=== PATIENT | male | born 1945 | race Caucasian/White ===

== ENCOUNTER 2018-06-17 15:11 | Inpatient (IN) ==
--- NOTE | 2018-06-17 17:26 | ED ---
HPI General Chief Complaint: Psychiatric Symptoms Stated Complaint: psych eval/sherriff Time Seen by Provider: 06/17/18 16:31 Source: patient Mode of arrival: ambulatory Limitations: no limitations History of Present Illness HPI Narrative: Patient is a 72-year-old male brought in by [place] police under [place] act. Is apparently drinking alcohol all day today and made some threatening comments towards his he does have access to guns. His primary physician Fanta acted him and sent him here for evaluation. At this time he is denying all allegations denies suicidal, denies drinking denies making threatening comments. 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 His medical history significant for PTSD, depression, cirrhosis, thrombocytopenia, and pulmonary hypertension, and atrial fibrillation. Apparently he was on blood thinners in the past but has not been on them for months. [place] act does state that he has been noncompliant with medications. Patient is awake alert oriented to person he is not oriented to place or events. His speech is slightly slurred and he does smell of alcohol. MD complaint: Reports other Onset (ago): hour(s) Duration: getting worse History of same: Yes Relieving factors: none Exacerbating factors: none Context: Reports recent alcohol abuse; Denies recent drug abuse, not taking psychiatric medications, new medication(s) and significant life stressor Associated psychiatric symptoms: Reports homicidal ideation Associated symptoms: Reports denies other symptoms; Denies shortness of breath, nausea, vomiting and syncope Treatments prior to arrival: Reports placed on mental health hold Related Data Previous Rx's Medication Instructions Recorded cephalexin [Keflex] 500 mg PO BID 10 Days #20 cap 06/17/18 Allergies Allergy/AdvReac Type Severity Reaction Status Date / Time No Known Allergies Allergy Verified 06/17/18 16:33 Review of Systems ROS: all other systems reviewed are negative [facility] Medical History Medical History Atrial fibrillation (Acute) Surgical History Surgical History Hx of appendectomy (Acute) Family History Family History Other No pertinent family history Social History Social History Substance History: No History of Abuse Second Hand Smoke Exposure: No Smoking Status: Never smoker How Often Do You Have a Drink Containing Alcohol: 2 to 4 times a month Recent Travel [facility] within the Last 8 Weeks: No Recent Out of Country Travel within the Last 8 Weeks: No Substance Abuse Detail Alcohol: Substance Use Status: Active Route Used Substance Abuse: By Mouth Substance Abuse Comment: Patient minimizes his alcohol use, and is very vague in answering questions about his intake, and frequency. He also denies that he has cirrhosis, although the physician noted it on the H & P sheet that was enclosed. Immunization History Tetanus Immunization: Unsure Exam Narrative Exam Narrative: GENERAL: PT awake, alert, forgetful with slight slurred speech. SKIN: Focused skin assessment warm/dry. HEAD: Atraumatic. Normocephalic. EYES: Pupils equal and round. No scleral icterus. No injection or drainage. ENT: No nasal bleeding or discharge. Mucous membranes pink and moist. NECK: Trachea midline. No JVD. CARDIOVASCULAR: Regular rate and rhythm. Holosystolic murmur appreciated. RESPIRATORY: No accessory muscle use. Clear to auscultation. Breath sounds equal bilaterally. GASTROINTESTINAL: Abdomen soft, non-tender, nondistended. Hepatic and splenic margins not palpable. MUSCULOSKELETAL: No obvious deformities. No clubbing. No cyanosis. No edema. NEUROLOGICAL: Awake and alert. No obvious cranial nerve deficits. Motor grossly within normal limits. Normal speech. PSYCHIATRIC: Appropriate mood and affect; insight and judgment normal. Course Initial Documented Vital Signs Temperature 98.5 F 06/17/18 15:35 Pulse Rate 98 H 06/17/18 15:35 Respiratory Rate 18 06/17/18 15:35 Blood Pressure 116/70 06/17/18 15:35 Pulse Oximetry 100 06/17/18 15:35 Last Documented Vital Signs Temperature 98.9 F 06/21/18 06:35 Pulse Rate 79 06/21/18 06:35 Respiratory Rate 18 06/21/18 06:35 Blood Pressure 143/73 H 06/21/18 06:35 Pulse Oximetry 98 06/21/18 06:35 Medical Decision Making MDM Narrative Medical decision making narrative: Medical decision making narrative: During the course of the patients emergency department visit, the patients history, examination, and differential diagnosis were reviewed with the patient. He is not complaining of any chest pain jaw pain epigastric pain left arm pain shortness of breath. The patient was initially provided food, water, labwork and urinalysis. psychiatric screening ordered. An EKG was done at his primary care physician's office prior to coming here it does show atrial fibrillation with no ST elevation or inversion. The patients laboratory studies were reviewed and remarkable for (+) urinary tract infection, alcohol level is 132 mag within normal range TSH 4.04, also noted to have a macrocytic anemia likely secondary due to alcohol abuse. Platelets at 63, etoh level is 132, Elevated liver enzymes, UDS is negative. Will give one dose of antibiotics here for uti, recommend recheck cbc in 2 days. Stable for psych evaluations. Medical Screen Exam Complete: Yes Emergency Medical Condition: Yes Medical Screen Exam Complete: Yes Emergency Medical Condition: Yes Differential Diagnosis Differential Diagnosis: Intoxication, overdose, hypoglycemia, allegra, psychosis, paranoia, schizophrenia Lab Data Result diagrams: 06/17/18 17:24 06/19/18 07:42 Lab Results 06/17/18 06/17/18 06/17/18 Range/Units 16:50 16:50 17:24 WBC 4.5 (4.0-11.0) th/mm3 RBC 3.00 L (4.50-5.90) mil/mm3 Hgb 11.0 L (13.0-17.0) gm/dL Hct 31.2 L (39.0-51.0) % MCV 104.1 H (80.0-100.0) fL MCH 36.7 H (27.0-34.0) pg MCHC 35.3 (32.0-36.0) % RDW 17.3 H (11.6-17.2) % Plt Count 68 L (150-450) th/mm3 MPV 9.3 (7.0-11.0) fL Prelim Diff (Auto) Slide review pending Neut % (Auto) 47.4 (16.0-70.0) % Lymph % (Auto) 28.6 (9.0-44.0) % Stanton % (Auto) 20.3 H (0.0-8.0) % Eos % (Auto) 3.0 (0.0-4.0) % Baso % (Auto) 0.7 (0.0-2.0) % Neut # (Auto) 2.1 (1.8-7.7) th/mm3 Lymph # (Auto) 1.3 (1.0-4.8) th/mm3 Stanton # (Auto) 0.9 (0.0-0.9) th/mm3 Eos # (Auto) 0.1 (0.0-0.4) th/mm3 Baso # (Auto) 0.0 (0.0-0.2) th/mm3 WBC Differential . Diff Scan Auto diff confirmed Differential Comment . Platelet Estimate Low L (Normal) Platelet Morphology Normal (Normal) Ovalocytes 1+ H (None) Sodium (136-145) meq/L Potassium (3.5-5.1) meq/L Chloride (98-107) meq/L Carbon Dioxide (21.0-32.0) meq/L Anion Gap (5-15) meq/L BUN (7-18) mg/dL Creatinine (0.60-1.30) mg/dL Estimated GFR (>89) mL/min Random Glucose (74-106) mg/dL Hemoglobin A1c (4.3-6.0) % Calcium (8.5-10.1) mg/dL Magnesium (1.5-2.5) mg/dL Total Bilirubin (0.2-1.0) mg/dL AST (15-37) U/L ALT (12-78) U/L Alkaline Phosphatase (45-117) U/L Total Protein (6.4-8.2) g/dL Albumin (3.4-5.0) g/dL Triglycerides (42-150) mg/dL Cholesterol (120-200) mg/dL LDL Cholesterol, Calc (0-99) mg/dL HDL Cholesterol (40.0-60.0) mg/dL Cholesterol/HDL Ratio Ratio TSH (0.358-3.740) uIU/mL Urine Color [place] (Yellw/Straw) Urine Clarity Hazy H (Clear) Urine pH 5.0 (5.0-8.5) Ur Specific [place] 1.018 (1.002-1.035) Urine Protein Negative (Neg-Trace) mg/dL Urine Glucose (UA) Negative (Negative) mg/dL Urine Ketones Negative (Negative) mg/dL Urine Occult Blood Small H (Negative) Urine Nitrate Negative (Negative) Urine Bilirubin Negative (Negative) Urine Urobilinogen 4 or greater (Less than 2) mg/dL Ur Leukocyte Esterase Small H (Negative) Urine RBC 10 H (0-3) /hpf Urine WBC 17 H (0-5) /hpf Ur Squamous Epith Cells <1 (0-5) /hpf Calcium Oxalate Crystal Rare H (None) /hpf Hyaline Casts 31 (0-3) /lpf Urine Mucus Few H (Occasional) /lpf Micro UA Comment Culture indicated Ur Microscopic Review Not Reportable Urine Culture Comments Culture indicated Urine Opiates Screen Neg (Neg) Ur Barbiturates Screen Neg (Neg) Ur Amphetamines Screen Neg (Neg) U Benzodiazepines Scrn Neg (Neg) Urine Cocaine Screen Neg (Neg) U Cannabinoids Screen Neg (Neg) Serum Alcohol (0-5) mg/dL 06/17/18 06/19/18 06/19/18 Range/Units 17:24 07:42 07:42 WBC (4.0-11.0) th/mm3 RBC (4.50-5.90) mil/mm3 Hgb (13.0-17.0) gm/dL Hct (39.0-51.0) % MCV (80.0-100.0) fL MCH (27.0-34.0) pg MCHC (32.0-36.0) % RDW (11.6-17.2) % Plt Count (150-450) th/mm3 MPV (7.0-11.0) fL Prelim Diff (Auto) Neut % (Auto) (16.0-70.0) % Lymph % (Auto) (9.0-44.0) % Stanton % (Auto) (0.0-8.0) % Eos % (Auto) (0.0-4.0) % Baso % (Auto) (0.0-2.0) % Neut # (Auto) (1.8-7.7) th/mm3 Lymph # (Auto) (1.0-4.8) th/mm3 Stanton # (Auto) (0.0-0.9) th/mm3 Eos # (Auto) (0.0-0.4) th/mm3 Baso # (Auto) (0.0-0.2) th/mm3 WBC Differential Diff Scan Differential Comment Platelet Estimate (Normal) Platelet Morphology (Normal) Ovalocytes (None) Sodium 142 142 (136-145) meq/L Potassium 4.0 3.7 (3.5-5.1) meq/L Chloride 108 H 107 (98-107) meq/L Carbon Dioxide 26.5 28.0 (21.0-32.0) meq/L Anion Gap 8 7 (5-15) meq/L BUN 15 15 (7-18) mg/dL Creatinine 1.07 1.04 (0.60-1.30) mg/dL Estimated GFR 68 L 70 L (>89) mL/min Random Glucose 105 105 (74-106) mg/dL Hemoglobin A1c 4.1 L (4.3-6.0) % Calcium 9.6 9.0 (8.5-10.1) mg/dL Magnesium 1.8 (1.5-2.5) mg/dL Total Bilirubin 2.6 H (0.2-1.0) mg/dL AST 76 H (15-37) U/L ALT 40 (12-78) U/L Alkaline Phosphatase 170 H (45-117) U/L Total Protein 7.7 (6.4-8.2) g/dL Albumin 3.4 (3.4-5.0) g/dL Triglycerides 92 (42-150) mg/dL Cholesterol 137 (120-200) mg/dL LDL Cholesterol, Calc 77 (0-99) mg/dL HDL Cholesterol 41.4 (40.0-60.0) mg/dL Cholesterol/HDL Ratio 3.30 Ratio TSH 4.040 H (0.358-3.740) uIU/mL Urine Color (Yellw/Straw) Urine Clarity (Clear) Urine pH (5.0-8.5) Ur Specific [place] (1.002-1.035) Urine Protein (Neg-Trace) mg/dL Urine Glucose (UA) (Negative) mg/dL Urine Ketones (Negative) mg/dL Urine Occult Blood (Negative) Urine Nitrate (Negative) Urine Bilirubin (Negative) Urine Urobilinogen (Less than 2) mg/dL Ur Leukocyte Esterase (Negative) Urine RBC (0-3) /hpf Urine WBC (0-5) /hpf Ur Squamous Epith Cells (0-5) /hpf Calcium Oxalate Crystal (None) /hpf Hyaline Casts (0-3) /lpf Urine Mucus (Occasional) /lpf Micro UA Comment Ur Microscopic Review Urine Culture Comments Urine Opiates Screen (Neg) Ur Barbiturates Screen (Neg) Ur Amphetamines Screen (Neg) U Benzodiazepines Scrn (Neg) Urine Cocaine Screen (Neg) U Cannabinoids Screen (Neg) Serum Alcohol 132 H (0-5) mg/dL Discharge Plan Discharge Disposition Patient Disposition: 30 Still Patient Discharge Condition Condition: Stable Physicians Team ED Provider: Evin Lopez ED Midlevel Provider: Savanna Munguia Primary Care Provider: [facility] 's Attending Provider: Lucio Nolen Other Providers: Lucio Nolen Status ED Status: Left Department Discharge Information Discharge Date/Time: 06/18/18 09:32
[2018-06-17 17:50] LABS: Baso % (Auto) 0.7 % (0.0-2.0); Eos # (Auto) 0.1 th/mm3 (0.0-0.4); Hematocrit 31.2 % (39.0-51.0); Lymph # (Auto) 1.3 th/mm3 (1.0-4.8); Lymph % (Auto) 28.6 % (9.0-44.0); Mean Corpuscular HGB Conc 35.3 % (32.0-36.0); Mean Corpuscular Hemoglobin 36.7 pg (27.0-34.0); Mean Corpuscular Volume 104.1 fL (80.0-100.0); Mean Platelet Volume 9.3 fL (7.0-11.0); Mono # (Auto) 0.9 th/mm3 (0.0-0.9); Mono % (Auto) 20.3 % (0.0-8.0); Neut # (Auto) 2.1 th/mm3 (1.8-7.7); Neut % (Auto) 47.4 % (16.0-70.0); Platelet Count 68 th/mm3 (150-450); Red Cell Distribution Width 17.3 % (11.6-17.2); White Blood Count 4.5 th/mm3 (4.0-11.0)
[2018-06-17 18:16] LABS: Ovalocytes 1+; Platelet Morphology Normal (Normal)
[2018-06-17 18:20] LABS: Albumin 3.4 g/dL (3.4-5.0); Anion Gap 8 meq/L (5-15); Aspartate Aminotransferase 76 U/L (15-37); Blood Urea Nitrogen 15 mg/dL (7-18); Calcium 9.6 mg/dL (8.5-10.1); Carbon Dioxide 26.5 meq/L (21.0-32.0); Chloride 108 meq/L (98-107); Glomerular Filtration Rate 68 mL/min (>89); Glucose,Random 105 mg/dL (74-106); Magnesium 1.8 mg/dL (1.5-2.5); Sodium 142 meq/L (136-145)
[2018-06-17 18:23] LABS: Bilirubin,Urine Negative (Negative); Calcium Oxalate Crystals,Urine Rare /hpf; Clarity,Urine Hazy (Clear); Color,Urine Amber (Yellw/Straw); Glucose,Urine (UA) Negative (Negative); Hyaline Casts,Urine 31 /lpf (0-3); Leukocyte Esterase,Urine Small (Negative); Mucus,Urine Few /lpf (Occasional); Nitrite,Urine Negative (Negative); Specific Gravity,Urine 1.018 (1.002-1.035); Squamous Epithelial Cell,Urine <1 /hpf (0-5); Urobilinogen,Urine 4 or Greater mg/dL (Less than 2)
[2018-06-17 18:25] LABS: Alcohol 132 mg/dL (0-5)
[2018-06-17 18:28] LABS: Amphetamine Screen,Urine Neg (Neg); Barbiturate Screen,Urine Neg (Neg); Cannabinoid Screen,Urine Neg (Neg); Cocaine Screen,Urine Neg (Neg)
[2018-06-17 18:29] LABS: Opiate Screen,Urine Neg (Neg)
[2018-06-17 18:31] LABS: Alanine Aminotransferase 40 U/L (12-78); Alkaline Phosphatase 170 U/L (45-117); Total Protein 7.7 g/dL (6.4-8.2)
[2018-06-18] MEDS ORDERED: Bisacodyl 10 MG Supp RECTAL PRN (08:17)
[2018-06-18] MEDS ORDERED: Aluminum/Magnesium/Simethacone Susp 30 ML UDC PO PRN (08:17)
[2018-06-18] MEDS ORDERED: Haloperidol Inj 5 MG/ML Ampul IV.PUSH PRN (08:18)
[2018-06-18] MEDS ORDERED: LORazepam 1 MG Tablet PO PRN (08:18)
--- NOTE | 2018-06-18 11:12 | P.HPPSY ---
Provisional Diagnosis Admission Date: June 18, 2018 08:22 [place] I.: Adjustment disorder with disturbance of conduct, alcohol induced mood disorder, alcohol use disorder, poor impulse control disorder Competence Certification of Person's Competence To Provide Express and Informed Consent I have personally examined Sherif Mesa, a person being served at [facility] on, June 18, 2018 1057. Express and informed consent means consent voluntarily given in writing, by a competent person, after sufficient explanation and disclosure of the subject matter involved to enable the person to make a knowing and willful decision without any element of force, fraud, deceit, duress, or other form of constraint or coercion. This person is 18 years of age or older, is not now known to be incompetent to consent to treatment with a guardian advocate, and does not have a health care surrogate or proxy currently making medical treatment decisions. I have found this person to be one of the following: [] Competent to provide express and informed consent, as defined above, for voluntary admission to this facility and is competent to provide express and informed consent for treatment. He/she has the consistent capacity to make well reasoned, willful, and knowing decisions concerning his or her medical or mental health treatment. The person fully and consistently understands the purpose of the admission for examination/placement and is fully capable of personally exercising all rights assured under [place] [] Incompetent to provide express and informed consent to voluntary admission, and this is incompetent to provide express and informed consent to treatment. The person must be transferred to involuntary status and a petition for a guardian advocate filed with the Circuit Court. [x] Refusing to provide express and informed consent to voluntary admission but is competent to provide express and informed consent for treatment. The person must be discharged or transferred to involuntary status. Form shall be completed within 24 hours of a person's arrival at the receiving facility and filed in the clinical record of each person: 1. Admitted on a voluntary basis 2. Permitted to provide express and informed consent to his/her own treatment 3. Allowed to transfer from involuntary to voluntary status 4. Prior to permitting a person to consent to his or her own treatment after having been previously found incompetent to consent to treatment. History of Present Illness Capacity: Has capacity History of Present Illness: The patient is a 72-year-old man, domiciled with his in [place], retired, with a psychiatric history of poor impulse control disorder, but not prepsychotic hospitalizations, no previous suicidal attempts, alcohol use disorder, no significant medical history, who was brought in by [place] police under [place] act was initiated by PCP. He was apparently drinking alcohol all day yesterday and made some threatening comments towards his he does have access to guns. His primary physician Fanta acted him and sent him here for evaluation. At this time he is denying all allegations denies suicidal, denies drinking denies making threatening comments. In the ER he became quite agitated stating that he will call his boom tender. Chart was reviewed. Case was widely discussed with ER staff. Collateral information from patient's was obtained. On my psychiatric evaluation today the patient is calm, cooperative, a little bit irritable. Patient says that the reason he is here is because he was in a convenience store and had an argument with the dispatcher. He says that this person became disrespectful with him and his and that the reason he had an argument. When I asked the patient if he was visiting his doctor yesterday, he denies this. At the same time the patient says that he was not drunk, and the last time that he drank alcohol was on the weekend in a football game. The patient reports that he feels fine he is ready to go home. The patient denies allegations in the [place] act as well as denies the use of alcohol. When I confronted thing about saying that he will use his legal guns to commit suicide, he even denies that he has guns at home. The patient is completely oriented x3 at the moment, he denies symptomatology of depression, he denies anhedonia, denies hopelessness, denies helplessness, he denies suicidal enemas ideation, he denies visual and auditory hallucinations at the moment. Collateral from Jayashree Mesa, : She tells me that the patient was extremely agitated yesterday in the doctor's office. She says that he does not remember anything because he was completely drunk, as he is every day in the last weeks. She also reports that the patient has been very aggressive with her other family members, with very poor tolerance to frustration and contradictions. She says that yesterday when they were going to the doctor he started punching the dashboard of his car because the AC was not working at the time that he wanted, at the point that he bled from his first. She also confirmed that the patient verbalized that he would shoot himself with his guns he does have legal guns at home that are already taken care of by police. She is in agreement with a psychiatric hospitalization with a potential treatment. PPHx: Patient has a psychiatric history of poor impulse control, but no previous psychiatric hospitalizations, no previous suicide attempts PMHx: No significant medical history Family Hx: No family psychiatric history Substance Hx: Patient drinks alcohol daily, denies the use of illegal drugs Social Hx: The patient was born and raised in [place], he losing [place] with his , has no kids, he is a retired AC tech, highest level of education is a bachelor degree. - Inpatient Certification I certify that the inpatient services were ordered in accordance with Medicare regulations governing the order. This includes certification that hospital inpatient services are reasonable and necessary and in the case of services not specified as inpatient-only under 42 CFR 419.22(n), that they are appropriately provided as inpatient services in accordance to with the 2-midnight benchmark under 43 CFR 412.3(e) I certify that inpatient psychiatric hospital services are medically necessary. Evaluation and treatment and/or diagnostic testing are expected to improve the patient's condition. The patient needs on a daily basis, active treatment furnished directly by or requiring the supervision of inpatient psychiatric facility personnel. Estimated Total Length of Stay (Days): 7 Plans for Post Hospital Care: Home Review of Systems All other systems reviewed negative except as stated in HPI Psychiatric: Reports anxiety, Reports confusion, Reports depression, Reports hopelessness, Reports irritability, Reports thoughts of hurting/killing yourself PMFSH - History History Provided By: Patient - Medical History Medical History: Medical History (Last Reviewed 06/17/18 @ 16:23 by Tessie Pisano) Atrial fibrillation - Surgical History Surgical History: Surgical History (Last Updated 06/17/18 @ 16:24 by Tessie Pisano) Hx of appendectomy - Family History Family History: Family History (Last Updated 06/17/18 @ 16:51 by Tessie Pisano) Other No pertinent family history - Tobacco History Second Hand Smoke Exposure: No Tobacco Use In Past 30 Days: No Smoking Status: Never smoker - Alcohol History How Often Do You Have a Drink Containing Alcohol: 2 to 4 times a month - Substance Use History Substance History: No History of Abuse - Substance Use Type Alcohol Status: Active Route Used: By Mouth Comment: Patient minimizes his alcohol use, and is very vague in answering questions about his intake, and frequency. He also denies that he has cirrhosis , although the physician noted it on the H & P sheet that was enclosed. - Travel History Recent Travel in the USA Within the Last 8 Weeks: No Recent Travel Out of the Country Within the Last 8 Weeks: No - Immunization History Tetanus Immunization: Unsure Medications and Allergies Active Medications: Active Medications Al Hydrox/Mg Hydrox/Simethicone (Mag-Al Plus Susp Liq) 30 ml PO Q6H PRN PRN Reason: DYSPEPSIA Al Hydroxide/Mg Hydroxide (Milk Of Magnesia Liq) 30 ml PO Q12H PRN PRN Reason: Mild Constipation Bisacodyl (Dulcolax Supp) 10 mg RECTAL DAILY PRN PRN Reason: SEVERE CONSITIPATION Flumazenil (Romazecon Inj) 0.2 mg IV.PUSH Q1M PRN PRN Reason: OVERSEDATION Haloperidol Lactate (Haldol Inj) 1 mg IV.PUSH Q15M PRN PRN Reason: for severe agitation Lactulose (Lactulose Liq) 30 ml PO DAILY PRN PRN Reason: SEVERE CONSITIPATION Lorazepam (Ativan) 2 mg PO Q2H PRN PRN Reason: for CIWA 11-14 Lorazepam (Ativan Inj) 2 mg IV.PUSH Q2H PRN PRN Reason: for CIWA 11-14 Lorazepam (Ativan Inj) 2 mg IV.PUSH Q1H PRN PRN Reason: for CIWA 15-20 Lorazepam (Ativan Inj) 2 mg IV.PUSH Q15M PRN PRN Reason: for CIWA > 20 Lorazepam (Ativan Inj) 1 mg IV.PUSH Q4H PRN PRN Reason: for CIWA 8-10 Lorazepam (Ativan) 1 mg PO Q4H PRN PRN Reason: for CIWA 8-10 Senna/Docusate Sodium (Laura-Colace) 1 tab PO BID KAVEH Sennosides (Senokot) 17.2 mg PO Q12H PRN PRN Reason: Moderate Constipation Allergies Allergy/AdvReac Type Severity Reaction Status Date / Time No Known Allergies Allergy Verified 06/17/18 16:33 Results - Labs CBC & Chem 7: 06/17/18 17:24 06/17/18 17:24 Labs: Laboratory Results - last 24 hr 06/17/18 06/17/18 06/17/18 16:50 16:50 17:24 WBC 4.5 RBC 3.00 L Hgb 11.0 L Hct 31.2 L MCV 104.1 H MCH 36.7 H MCHC 35.3 RDW 17.3 H Plt Count 68 L MPV 9.3 Prelim Diff (Auto) Slide review pending Neut % (Auto) 47.4 Lymph % (Auto) 28.6 [place] % (Auto) 20.3 H Eos % (Auto) 3.0 Baso % (Auto) 0.7 Neut # (Auto) 2.1 Lymph # (Auto) 1.3 [place] # (Auto) 0.9 Eos # (Auto) 0.1 Baso # (Auto) 0.0 WBC Differential . Diff Scan Auto diff confirmed Differential Comment . Platelet Estimate Low L Platelet Morphology Normal Ovalocytes 1+ H Sodium Potassium Chloride Carbon Dioxide Anion Gap BUN Creatinine Estimated GFR Random Glucose Calcium Magnesium Total Bilirubin AST ALT Alkaline Phosphatase Total Protein Albumin TSH Urine Color Roshni Urine Clarity Hazy H Urine pH 5.0 Ur Specific [place] 1.018 Urine Protein Negative Urine Glucose (UA) Negative Urine Ketones Negative Urine Occult Blood Small H Urine Nitrate Negative Urine Bilirubin Negative Urine Urobilinogen 4 or greater Ur Leukocyte Esterase Small H Urine RBC 10 H Urine WBC 17 H Ur Squamous Epith Cells <1 Calcium Oxalate Crystal Rare H Hyaline Casts 31 Urine Mucus Few H Micro UA Comment Culture indicated Ur Microscopic Review Not Reportable Urine Culture Comments Culture indicated Urine Opiates Screen Neg Ur Barbiturates Screen Neg Ur Amphetamines Screen Neg U Benzodiazepines Scrn Neg Urine Cocaine Screen Neg U Cannabinoids Screen Neg Serum Alcohol 06/17/18 17:24 WBC RBC Hgb Hct MCV MCH MCHC RDW Plt Count MPV Prelim Diff (Auto) Neut % (Auto) Lymph % (Auto) [place] % (Auto) Eos % (Auto) Baso % (Auto) Neut # (Auto) Lymph # (Auto) [place] # (Auto) Eos # (Auto) Baso # (Auto) WBC Differential Diff Scan Differential Comment Platelet Estimate Platelet Morphology Ovalocytes Sodium 142 Potassium 4.0 Chloride 108 H Carbon Dioxide 26.5 Anion Gap 8 BUN 15 Creatinine 1.07 Estimated GFR 68 L Random Glucose 105 Calcium 9.6 Magnesium 1.8 Total Bilirubin 2.6 H AST 76 H ALT 40 Alkaline Phosphatase 170 H Total Protein 7.7 Albumin 3.4 TSH 4.040 H Urine Color Urine Clarity Urine pH Ur Specific [place] Urine Protein Urine Glucose (UA) Urine Ketones Urine Occult Blood Urine Nitrate Urine Bilirubin Urine Urobilinogen Ur Leukocyte Esterase Urine RBC Urine WBC Ur Squamous Epith Cells Calcium Oxalate Crystal Hyaline Casts Urine Mucus Micro UA Comment Ur Microscopic Review Urine Culture Comments Urine Opiates Screen Ur Barbiturates Screen Ur Amphetamines Screen U Benzodiazepines Scrn Urine Cocaine Screen U Cannabinoids Screen Serum Alcohol 132 H Exam Vital signs: Vital Signs 06/17/18 15:35 06/17/18 16:15 06/17/18 18:05 Temperature 98.5 F 96.1 F L Pulse Rate 98 H 88 96 H Respiratory Rate 18 16 18 Blood Pressure 116/70 126/70 128/85 Pulse Oximetry 100 99 99 06/17/18 22:07 06/18/18 04:11 Temperature 98.4 F 97.2 F L Pulse Rate 100 H 87 Respiratory Rate 18 18 Blood Pressure 150/93 H 151/83 H Pulse Oximetry 97 98 Intake & Output 06/17/18 06/18/18 06/18/18 18:59 06:59 18:59 Weight 176 kg Narrative: Patient does not present any gait disturbance, psychomotor agitation or retardation, no withdrawal symptoms at the moment, no stiffness, no EPS, no catatonia - Constitutional mild distress - Routine HEENT Exam Head: Present: normocephalic, atraumatic Eye: Present: EOMI, PERRL ENT: Present: mucous membranes moist Mental Status Examination Appearance: Appropriate Consciousness: Alert Orientation: x4 Motor Activity: Normal gait Speech: Unremarkable Language: Adequate Fund of Knowledge: Adequate Attention and Concentration: Adequate Memory: Impaired Mood: Angry Affect: Irritable Thought Process & Associations: Intact Thought Content: Appropriate Hallucination Type: None Delusion Type: None Suicidal Ideation: Yes Suicidal Plan: No Suicidal Intention: No Homicidal Ideation: No Homicidal Plan: No Homicidal Intention: No Insight: Poor Judgment: Adequate Assessment and Plan - Assessment (1) Acute adjustment disorder with disturbance of conduct Code(s): F43.24 - Adjustment disorder with disturbance of conduct Status: Acute - Plan Plan: On psychiatric evaluation today the patient is superficially cooperative, irritable, minimizing recent episode of behavioral disturbance, suicidal ideation and aggressive behavior. The patient is pretending that he does not remember the circumstances that brought him to the hospital, he is minimizing his alcohol intake, and stating that he has not drank any alcohol in the last week, but when confronted about positive BAL and the fact that he was most probably drunk when he was [place] he becomes irate and verbally hostile. As per , the patient has being having intensive mood swings, aggressive behavior with family members, with increased alcohol intake in the last weeks, and she says that he was very serious when he is 6 but he has a load gun at home ready for him to shoot him self. The patient has a psychiatric history of poor impulse control disorder, alcohol use disorder, but no previous psychiatric hospitalizations. At this moment the patient has a elevated risk of danger to self, he will be admitted in psychiatry for longitudinal observation of mood and behavior, and also for safety, and potential psychotropic use. [facility] be place in [facility]. Might benefit of an antidepressant/mood stabilizer. Transfer to 2500 unit. Justification for Continued Inpatient Stay: Continue psychiatric admission
[2018-06-18] MEDS: Senna/Docusate Sodium 8.6/50 MG Tablet PO SCH ×2 (12:52→21:12)
[2018-06-19 08:40] LABS: Potassium 3.7 meq/L (3.5-5.1)
[2018-06-19 08:43] LABS: Chol/HDL Ratio 3.3 Ratio; HDL Cholesterol 41.4 mg/dL (40.0-60.0)
[2018-06-19] MEDS: Senna/Docusate Sodium 8.6/50 MG Tablet PO SCH ×2 (09:50→21:17)
[2018-06-19 10:57] LABS: Hemoglobin A1c 4.1 % (4.3-6.0)
--- NOTE | 2018-06-19 16:06 | P.CONPSY ---
Provisional Diagnosis Admission Date: June 18, 2018 08:22 [place] I.: Adjustment disorder with disturbance of conduct, alcohol induced mood disorder, alcohol use disorder, poor impulse control disorder History of Present Illness Service: Psychiatry Consult date: 06/19/18 Requesting Physician: Carlos Harvey Reason for Consult: Second opinion Primary Care Provider: Physician [facility] History of Present Illness: Patient is a 72 y/o man, brought in under [place] Act by his PCP after threatening behavior toward and being extremely agitated at PCP office in the context of BAL of 132 which patient was admitted to the inpatient psychiatry unit for further evaluation and management. Patient was found ambulating on the unit, noted to be apprehensive during interview and minimizing alcohol use as well recent behavior. He states feeling "excellent", no change in sleep, appetite, or mood. He states having recently retired from his employ two days ago, reporting that he has been "stressed recently with work ". He states having discontinued his medications 2-3 months ago. He denies any relationship discord or arguements with his . He recalls being at a convenience store and arguing with grocery store clerk which he believes was the event that led to his hospitalization. He denies any depressed mood, reports drinking alcohol two days of the week and usually two drinks at a time. Collateral information from patient's reported that the patient has been drinking daily and in large amounts. She mentions noticing that the patient recently has been feeling down, family dog pass away one year ago which patient also had a depressive episode. She denies patient ever having been threatening toward her. She mentions having concerns with the daily alcohol use and would like patient to engage in rehabilitation program Review of Systems All other systems reviewed negative except as stated in HPI [facility] - History History Provided By: Patient, Family Member, Medical Record - Medical History Medical History: Medical History (Last Reviewed 06/17/18 @ 16:23 by Tessie Pisano) Atrial fibrillation - Surgical History Surgical History: Surgical History (Last Updated 06/17/18 @ 16:24 by Tessie Pisano) Hx of appendectomy - Family History Family History: Family History (Last Updated 06/17/18 @ 16:51 by Tessie Pisano) Other No pertinent family history - Tobacco History Second Hand Smoke Exposure: No Tobacco Use In Past 30 Days: No Smoking Status: Never smoker - Alcohol History How Often Do You Have a Drink Containing Alcohol: 2 to 4 times a month - Substance Use History Substance History: No History of Abuse - Substance Use Type Alcohol Status: Active Route Used: By Mouth Frequency: Daily Comment: Patient denies use of alcohol or the presence of any medical issues related to alcohol use. - Travel History Recent Travel in the [place] Within the Last 8 Weeks: No Recent Travel Out of the Country Within the Last 8 Weeks: No - Immunization History Tetanus Immunization: Unsure Hx Influenza Vaccine This Season: Yes Medications and Allergies Active Medications: Active Medications Al Hydrox/Mg Hydrox/Simethicone (Mag-Al Plus Susp Liq) 30 ml PO Q6H PRN PRN Reason: DYSPEPSIA Al Hydroxide/Mg Hydroxide (Milk Of Magnesia Liq) 30 ml PO Q12H PRN PRN Reason: Mild Constipation Bisacodyl (Dulcolax Supp) 10 mg RECTAL DAILY PRN PRN Reason: SEVERE CONSITIPATION Flumazenil (Romazecon Inj) 0.2 mg IV.PUSH Q1M PRN PRN Reason: OVERSEDATION Haloperidol Lactate (Haldol Inj) 1 mg IV.PUSH Q15M PRN PRN Reason: for severe agitation Lactulose (Lactulose Liq) 30 ml PO DAILY PRN PRN Reason: SEVERE CONSITIPATION Lorazepam (Ativan) 2 mg PO Q2H PRN PRN Reason: for CIWA 11-14 Lorazepam (Ativan Inj) 2 mg IV.PUSH Q2H PRN PRN Reason: for CIWA 11-14 Lorazepam (Ativan Inj) 2 mg IV.PUSH Q1H PRN PRN Reason: for CIWA 15-20 Lorazepam (Ativan Inj) 2 mg IV.PUSH Q15M PRN PRN Reason: for CIWA > 20 Lorazepam (Ativan Inj) 1 mg IV.PUSH Q4H PRN PRN Reason: for CIWA 8-10 Lorazepam (Ativan) 1 mg PO Q4H PRN PRN Reason: for CIWA 8-10 Senna/Docusate Sodium (Laura-Colace) 1 tab PO BID KAVEH Last Admin: 06/19/18 09:50 Dose: Not Given Sennosides (Senokot) 17.2 mg PO Q12H PRN PRN Reason: Moderate Constipation Allergies Allergy/AdvReac Type Severity Reaction Status Date / Time No Known Allergies Allergy Verified 06/17/18 16:33 Exam Vital signs: Vital Signs 06/18/18 18:33 06/19/18 06:00 Temperature 99.2 F 98.6 F Pulse Rate 92 H 85 Respiratory Rate 18 18 Blood Pressure 158/78 H 141/83 H Pulse Oximetry 96 96 Intake & Output 06/18/18 06/19/18 06/19/18 18:59 06:59 18:59 Intake Total 720 / 720 120 / 120 Balance 720 / 720 120 / 120 Weight 81.9 kg Intake: Oral 720 / 720 120 / 120 Other: # Voids 2 2 2 Weight On Admission 81.9 kg - Constitutional no acute distress, cooperative Mental Status Examination Appearance: Appropriate Consciousness: Alert Orientation: x4 Motor Activity: Normal gait Speech: Unremarkable Language: Adequate Fund of Knowledge: Adequate Attention and Concentration: Adequate Memory: Impaired Mood: Anxious Affect: Anxious Thought Process & Associations: Intact Thought Content: Appropriate Hallucination Type: None Delusion Type: None Suicidal Ideation: No Suicidal Plan: No Suicidal Intention: No Homicidal Ideation: No Homicidal Plan: No Homicidal Intention: No Insight: Poor Judgment: Adequate Assessment and Plan - Assessment (1) Acute adjustment disorder with disturbance of conduct Code(s): F43.24 - Adjustment disorder with disturbance of conduct Status: Acute (2) Alcohol abuse Code(s): F10.10 - Alcohol abuse, uncomplicated Status: Acute - Plan Plan: I have seen and examined this patient, reviewed the documentation, and I agree and concur with Dr. Harvey assessment and plan. I have completed second opinion for the petition for involuntary hospitalization. Consult appreciated. Justification for Continued Inpatient Stay: At risk for further decompensation at lower level of care
[2018-06-20] MEDS: Senna/Docusate Sodium 8.6/50 MG Tablet PO SCH ×2 (08:55→21:14)
--- NOTE | 2018-06-20 14:28 | P.PNPSY ---
Subjective Remarks: Reviewed electronic medical records and discussed case with staff. Follow-up was conducted in the day room with RODRIGO Inman present. The patient was found sitting in a Cristina chair. He states that he slept well and his appetite's been good. When asked about his mood he states "it is great". 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 He states that he is planning on going on the floor to store when he is discharged. I am not sure if his claims are accurate he seems rather grandiose and to be confabulating somewhat. Mental Status Examination Appearance: Appropriate Consciousness: Alert Orientation: x4 Motor Activity: Normal gait Speech: Unremarkable Language: Adequate Fund of Knowledge: Adequate Attention and Concentration: Adequate Memory: Impaired Mood: Angry Affect: Irritable Thought Process & Associations: Intact Thought Content: Appropriate Hallucination Type: None Delusion Type: None Suicidal Ideation: Yes Suicidal Plan: No Suicidal Intention: No Homicidal Ideation: No Homicidal Plan: No Homicidal Intention: No Insight: Poor Judgment: Adequate Assessment and Plan - Assessment (1) Acute adjustment disorder with disturbance of conduct Code(s): F43.24 - Adjustment disorder with disturbance of conduct Status: Acute - Plan Plan: Patient will be reevaluated by the attending psychiatrist. Continue with current treatment plan. Justification for Continued Inpatient Stay: Moving this patient to a less restrictive environment would likely result in decompensation.
--- NOTE | 2018-06-21 09:14 | P.PNPSY ---
Subjective Remarks: Reviewed electronic medical records and discussed case with staff. Follow-up was conducted in the common area with RN present. Patient sitting in Cristina chair and eating breakfast. Euthymic and very pleasant. States that he likes the food and the accommodations. States he is sleeping well. Preoccupied with returning home with his of 41 years. Denies SI/HI. Review of Systems All other systems reviewed negative except as stated in HPI Mental Status Examination Appearance: Appropriate Consciousness: Alert Orientation: x4 Motor Activity: Normal gait Speech: Unremarkable Language: Adequate Fund of Knowledge: Adequate Attention and Concentration: Adequate Memory: Impaired Mood: Appropriate Affect: Euthymic Thought Process & Associations: Intact Thought Content: Appropriate Hallucination Type: None Delusion Type: None Suicidal Ideation: No Suicidal Plan: No Suicidal Intention: No Homicidal Ideation: No Homicidal Plan: No Homicidal Intention: No Insight: Poor Judgment: Adequate Assessment and Plan - Assessment (1) Acute adjustment disorder with disturbance of conduct Code(s): F43.24 - Adjustment disorder with disturbance of conduct Status: Acute - Plan Plan: Continue current treatment plan. Justification for Continued Inpatient Stay: Moving patient to a less restrictive environment may result in his decompensation.
[2018-06-21] MEDS: Senna/Docusate Sodium 8.6/50 MG Tablet PO SCH ×2 (10:21→21:14)
[2018-06-22] MEDS: Senna/Docusate Sodium 8.6/50 MG Tablet PO SCH (09:18)
--- NOTE | 2018-06-22 14:06 | P.TTN ---
- Patient Problems Problems: 1. Discharge planning 2. Medication compliance 3. Knowledge deficit 4. Lack of coping skills - Progress Toward Goals Provider Present: Dr. Mono Nolen Provider Input: 06/22/18: MD spoke with spouse tuesday 06/19; poc is for pt to return to home with spouse with out-pt interventions. It has been reported that pt has guns in the home, spouse has been advised to remove or to secure them, spouse has reported that this has been done. Pt is in denial of his hx of etoh use/abuse. Psychiatric Counselors Present: Therese Regan [facility] Psychiatric Therapist Input: 06/22/18: Per reports, spouse of pt has been advised to remove guns from home (spouse reports that they are secured). Counselor to reiterate of the team's unwavering recommendation that guns be removed from home, as of this note, spouse has refused to remove guns. Group Spec/RT/OT/MORALES Present: Jos Barillas OT, CARMEN Reid Group Spec/RT/OT/MORALES Input: 06/22/18: Pt does not attend groups. Additional Input: 06/22/18: Pt is exprected to return home, living with his spouse, when he is deemed stable. - Documentation Teaching Recipient: Patient
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
== END 2018-06-22 16:05 | disposition home or self-care (01) ==
LOC: NEDAMB 15:11 → NEDA 06-18 08:22 → H250 06-18 09:04
PROVIDERS: ADMIT Student in an Organized Health Care Education/Training Program; ATTEND Student in an Organized Health Care Education/Training Program